=== PATIENT | male | born 1985 | race Caucasian/White ===

== ENCOUNTER 2018-07-04 15:31 | Emergency (ER) | payer MEDICAID, SELFPAY ==
[2018-07-04 15:36] VITALS: BP 138/72; PULSE 67; RESP 12; TEMP 37; O2SAT 98
--- NOTE | 2018-07-04 15:38 | W.ED.GENAD ---
Discharge Plan Disposition Patient Disposition: HOME Condition: Good Discharge Details Chief Complaint: DentalOral Clinical Impression: Dental infection Primary Care Provider: Addy Pham ED Provider: Ky Mercado Home Meds and New Rx's Prescriptions: New clindamycin HCl 150 mg capsule 450 mg PO TID 7 Days Qty: 63 RF: 0 ibuprofen 600 mg tablet 600 mg PO QID PRN (Reason: pain) Qty: 30 RF: 0 Discharge Instructions Additional Instructions: follow up with your dentist take 600mg ibuprofen and 1000mg tylenol every 6 hours for pain as needed if you have difficulty swallowing, high fevers, or difficulty breathing return to the emergency department Medical Decision Making Pt states last week she had his anterior upper left tooth pulled at dentist in [place], then had to go back yesterday for infection where they drained it .They were supposed to call him in a prescription but he states they didn't so he came here for a prescription. 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 No abscess I can palpate or see that I can drain. Will start on abx and he will f/u with his dentist, return precautions given Differential Diagnosis gum infection, abscess HPI General Mode of arrival: ambulatory. Date/Time Provider Initiated Documentation: 07/04/18 15:34. Limitations to Documentation: no limitations. Information obtained by: patient. History of Present Illness 32 year old M presents to the emergency department with the chief complaint of anterior upper gum pain, described as moderate, with intensity rated at 7. Quality is described as aching, and is localized to the mouth. Patient reports no radiation. Patient started experiencing this week(s) (1) and it has been constant. No relieving factors improve symptom(s), No exacerbating factors reported . Patient notes no other symptoms.. Patient did receive the following treatments prior to arrival, none Related Data Home Medications Medication Instructions Recorded Confirmed clindamycin HCl 450 mg PO TID 7 Days #63 cap 07/04/18 ibuprofen 600 mg PO QID PRN #30 tab 07/04/18 Previous Rx's Medication Instructions Recorded clindamycin HCl 450 mg PO TID 7 Days #63 cap 07/04/18 ibuprofen 600 mg PO QID PRN #30 tab 07/04/18 Allergies Allergy/AdvReac Type Severity Reaction Status Date / Time penicillin V [Penicillin V] Allergy Severe Anaphylaxsi Unverified 07/04/18 15:38 s General Stated Complaint: DentalOral [place]: 5 Review of Systems Review of Systems All systems reviewed & are unremarkable except as noted in HPI and below Constitutional Denies chills, Denies fever(s) and Denies weakness Eyes Denies loss of vision ENT Denies change in voice Cardiovascular Denies chest pain and Denies dyspnea Respiratory Denies dyspnea Gastrointestinal Denies abdominal pain, Denies nausea and Denies vomiting Genitourinary Denies dysuria Musculoskeletal Denies joint swelling Integumentary/Breasts Denies rash Neurologic Denies loss of vision and Denies weakness PFSH Social History Smoking/Tobacco Use Status: Never Exam Const General: no acute distress Orientation: alert HENMT Head: normal to inspection Ears: external ears normal General nose exam: external nose normal Mouth: moist mucous membranes Eyes General: appearance normal, both eyes and all related structures Neck Neck: normal visual inspection Resp Effort & Inspection: normal respiratory effort and able to speak in complete sentences Cardio Rate: regular rate Skin General skin exam: no rashes or lesions noted Neuro General: alert and oriented x3 Extrem General: normal to inspection Psych Mental Status: mental status grossly normal Course Vital Signs Temperature 37.0 C 07/04/18 15:36 Pulse 67 07/04/18 15:36 Respiratory Rate 12 07/04/18 15:36 Blood Pressure 138/72 07/04/18 15:36 Pulse Oximetry 98 07/04/18 15:36 Temperature 37.0 C 07/04/18 15:36 Temperature Source Temporal Artery Scan 07/04/18 15:36 Pulse 67 07/04/18 15:36 Respiratory Rate 12 07/04/18 15:36 Blood Pressure 138/72 07/04/18 15:36 Blood Pressure Position Sitting 07/04/18 15:36 Pulse Oximetry 98 07/04/18 15:36 Oxygen Delivery Method Room Air 07/04/18 15:36 Oxygen Flow Rate 0 07/04/18 15:36 Pain Level 7 07/04/18 15:36
--- NOTE | 2018-07-04 15:41 | ED.GENADUL_ITS ---
Discharge Plan Disposition Patient Disposition: HOME Condition: Good Discharge Details Chief Complaint: DentalOral Clinical Impression: Dental infection Primary Care Provider: Addy Pham ED Provider: Ky Mercado Home Meds and New Rx's Prescriptions: New clindamycin HCl 150 mg capsule 450 mg PO TID 7 Days Qty: 63 RF: 0 ibuprofen 600 mg tablet 600 mg PO QID PRN (Reason: pain) Qty: 30 RF: 0 Discharge Instructions Additional Instructions: follow up with your dentist take 600mg ibuprofen and 1000mg tylenol every 6 hours for pain as needed if you have difficulty swallowing, high fevers, or difficulty breathing return to the emergency department Medical Decision Making Pt states last week she had his anterior upper left tooth pulled at dentist in [place], then had to go back yesterday for infection where they drained it .They were supposed to call him in a prescription but he states they didn't so he came here for a prescription. 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 No abscess I can palpate or see that I can drain. Will start on abx and he will f/u with his dentist, return precautions given Differential Diagnosis gum infection, abscess HPI General Mode of arrival: ambulatory . Date/Time Provider Initiated Documentation: 07/04/18 15:34 . Limitations to Documentation: no limitations . Information obtained by: patient . History of Present Illness 32 year old M presents to the emergency department with the chief complaint of anterior upper gum pain, described as moderate, with intensity rated at 7. Quality is described as aching, and is localized to the mouth. Patient reports no radiation. Patient started experiencing this week(s) (1) and it has been constant. No relieving factors improve symptom(s), No exacerbating factors reported . Patient notes no other symptoms.. Patient did receive the following treatments prior to arrival, none Related Data Home Medications Medication Instructions Recorded Confirmed clindamycin HCl 450 mg PO TID 7 Days #63 cap 07/04/18 ibuprofen 600 mg PO QID PRN #30 tab 07/04/18 Previous Rx's Medication Instructions Recorded clindamycin HCl 450 mg PO TID 7 Days #63 cap 07/04/18 ibuprofen 600 mg PO QID PRN #30 tab 07/04/18 Allergies Allergy/AdvReac Type Severity Reaction Status Date / Time penicillin V [Penicillin V] Allergy Severe Anaphylaxsi Unverified 07/04/18 15:38 s General Stated Complaint: DentalOral [place]: 5 Review of Systems Review of Systems All systems reviewed & are unremarkable except as noted in HPI and below Constitutional Denies chills, Denies fever(s) and Denies weakness Eyes Denies loss of vision ENT Denies change in voice Cardiovascular Denies chest pain and Denies dyspnea Respiratory Denies dyspnea Gastrointestinal Denies abdominal pain, Denies nausea and Denies vomiting Genitourinary Denies dysuria Musculoskeletal Denies joint swelling Integumentary/Breasts Denies rash Neurologic Denies loss of vision and Denies weakness PFSH Social History Smoking/Tobacco Use Status: Never Exam Const General: no acute distress Orientation: alert HENMT Head: normal to inspection Ears: external ears normal General nose exam: external nose normal Mouth: moist mucous membranes Eyes General: appearance normal, both eyes and all related structures Neck Neck: normal visual inspection Resp Effort & Inspection: normal respiratory effort and able to speak in complete sentences Cardio Rate: regular rate Skin General skin exam: no rashes or lesions noted Neuro General: alert and oriented x3 Extrem General: normal to inspection Psych Mental Status: mental status grossly normal Course Vital Signs Temperature 37.0 C 07/04/18 15:36 Pulse 67 07/04/18 15:36 Respiratory Rate 12 07/04/18 15:36 Blood Pressure 138/72 07/04/18 15:36 Pulse Oximetry 98 07/04/18 15:36 Temperature 37.0 C 07/04/18 15:36 Temperature Source Temporal Artery Scan 07/04/18 15:36 Pulse 67 07/04/18 15:36 Respiratory Rate 12 07/04/18 15:36 Blood Pressure 138/72 07/04/18 15:36 Blood Pressure Position Sitting 07/04/18 15:36 Pulse Oximetry 98 07/04/18 15:36 Oxygen Delivery Method Room Air 07/04/18 15:36 Oxygen Flow Rate 0 07/04/18 15:36 Pain Level 7 07/04/18 15:36
== END 2018-07-04 15:52 | disposition home or self-care (01) ==
LOC: ER 15:54
PROVIDERS: Emergency Provider Emergency Medicine; PCP Internal Medicine
DX: K04.7 Periapical abscess without sinus (principal)
CPT/HCPCS: 99283

== ENCOUNTER 2019-02-10 17:31 | Emergency (ER) | payer MEDICAID, SELFPAY ==
[2019-02-10 17:38] VITALS: BP 143/80; PULSE 76; RESP 20; TEMP 36.7; O2SAT 97
--- NOTE | 2019-02-10 17:48 | W.ED.GENAD ---
Discharge Plan Disposition Patient Disposition: HOME Condition: Fair Discharge Details Chief Complaint: GenMedical Clinical Impression: URI (upper respiratory infection), Acute dehydration Primary Care Provider: Addy Pham ED Provider: Nathaly Ram Home Meds and New Rx's Prescriptions: Continued ibuprofen 600 mg tablet 600 mg PO QID PRN (Reason: pain) Qty: 30 RF: 0 Discharge Instructions Instructions: Dehydration (ED), Upper Respiratory Infection (ED) Additional Instructions: Encourage hydration. Tylenol and/or ibuprofen as needed for discomfort. Please follow-up with her primary care next week if symptoms persist. If you develop shortness of breath, difficulty breathing, fevers, inability stay hydrated or other new/worsening symptoms please seek care urgently once again. Stand Alone Forms: Work Release Referrals: Addy Pham MD [Primary Care Provider] - Medical Decision Making Patient is a 33-year-old male presenting today with chief complaint of URI. He reports that he started having symptoms yesterday and is endorsing left ear pain, sore throat, cough. Feels that he overheated yesterday as he was working outside in the heat. States that he has had difficulty staying hydrated given his line of work. States that yesterday he had some nausea but that is since subsided. No diarrhea, no change in urinary habits. States that he has hydrated aggressively today. Sounds to have been dehydrated yesterday. Vital signs are reassuring, patient appears nontoxic. No acute abnormalities noted on exam. Lungs are clear. Advised likely viral URI. Encourage hydration. Will give a note for work. Advised Tylenol and ibuprofen as needed for discomfort. Was given strict return precautions. Advise follow-up with primary care next week for reevaluation if symptoms have not completely improved. All his questions and concerns were addressed and he is in agreement's plan HPI General Mode of arrival: ambulatory. Date/Time Provider Initiated Documentation: 02/10/19 17:47. Limitations to Documentation: no limitations. Information obtained by: patient and RN notes reviewed. HPI Narrative: Is a 33-year-old male presenting today with concern for possible heat exposure yesterday, dehydration yesterday, URI symptoms. He reports overall he is feeling improved today but continues to feel fatigued. Is endorsing mild cough, left ear pain, sore throat. No fevers. Has felt that his skin is warm but associates this with the warm temperatures he was working yesterday. Related Data Home Medications Medication Instructions Recorded Confirmed ibuprofen 600 mg PO QID PRN #30 tab 07/04/18 02/10/19 Previous Rx's Medication Instructions Recorded ibuprofen 600 mg PO QID PRN #30 tab 07/04/18 Allergies Allergy/AdvReac Type Severity Reaction Status Date / Time penicillin V [Penicillin V] Allergy Severe Anaphylaxsi Unverified 02/10/19 17:39 s General Stated Complaint: GenMedical [place]: 4 Review of Systems Constitutional Reports as per HPI and Denies headache(s) Eyes Reports as per HPI, Denies eye discharge and Denies irritation ENT Reports as per HPI, Denies change in voice, Denies ear discharge, Reports otalgia, Denies headache(s), Reports nasal congestion, Reports nasal discharge, Denies sinus pain and Reports sore throat Cardiovascular Reports as per HPI, Denies chest pain and Denies dyspnea Respiratory Reports as per HPI, Denies chest congestion, Reports cough, Denies hemoptysis and Denies dyspnea Gastrointestinal Reports as per HPI, Denies abdominal pain, Denies change in bowel habits, Denies nausea and Denies vomiting Integumentary/Breasts Reports as per HPI and Denies rash Neurologic Reports as per HPI and Denies headache(s) [facility] Social History Smoking/Tobacco Use Status: Never Drug use: Never Do you feel safe at home: Yes Do you feel safe in your relationship?: Yes Exam Const General: cooperative, healthy appearing, comfortable, no acute distress, well developed and well groomed Nutritional Appearance: average body habitus and well nourished Orientation: alert and awake [facility] Head: normal to inspection, normocephalic and atraumatic Ears: hearing grossly normal bilaterally, external ears normal and TM's normal bilaterally General nose exam: external nose normal and nares normal Face and sinus: normal facial exam, sinuses nontender and face symmetric Mouth: oral mucosae normal, lip normal, tongue normal, oropharynx normal and moist mucous membranes Teeth and gingiva: dentition normal Throat: posterior oropharynx normal, tonsils normal and uvula midline Eyes General: appearance normal, both eyes and all related structures Neck Neck: normal visual inspection, full ROM, no lymphadenopathy and no meningeal signs Resp Effort & Inspection: normal respiratory effort, able to speak in complete sentences and no respiratory distress Auscultation: clear to auscultation bilaterally, no rales, no rhonchi and no wheezes Cardio Rate: regular rate Rhythm: regular rhythm Heart Sounds: S1 normal and S2 normal Skin General skin exam: no rashes or lesions noted Neuro General: alert and awake Cognition: normal cognition Speech: speech normal Gait: normal gait Psych Appearance: grossly normal and well kempt Mental Status: mental status grossly normal Speech and Movement: speech and movement normal Course Vital Signs Temperature 36.7 C 02/10/19 17:38 Pulse 76 02/10/19 17:38 Respiratory Rate 20 02/10/19 17:38 Blood Pressure 143/80 H 02/10/19 17:38 Pulse Oximetry 97 02/10/19 17:38 Temperature 36.7 C 02/10/19 17:38 Temperature Source Temporal Artery Scan 02/10/19 17:38 Pulse 76 02/10/19 17:38 Respiratory Rate 20 02/10/19 17:38 Respiratory Effort Non-Labored 02/10/19 17:38 Blood Pressure 143/80 H 02/10/19 17:38 Pulse Oximetry 97 02/10/19 17:38 Oxygen Delivery Method Room Air 02/10/19 17:38 Oxygen Flow Rate 0 02/10/19 17:38 Pain Level 0 02/10/19 17:38
--- NOTE | 2019-02-10 18:35 | ED.GENADUL_ITS ---
Discharge Plan Disposition Patient Disposition: HOME Condition: Fair Discharge Details Chief Complaint: GenMedical Clinical Impression: URI (upper respiratory infection), Acute dehydration Primary Care Provider: Addy Pham ED Provider: Nathaly Ram Home Meds and New Rx's Prescriptions: Continued ibuprofen 600 mg tablet 600 mg PO QID PRN (Reason: pain) Qty: 30 RF: 0 Discharge Instructions Instructions: Dehydration (ED), Upper Respiratory Infection (ED) Additional Instructions: Encourage hydration. Tylenol and/or ibuprofen as needed for discomfort. Please follow-up with her primary care next week if symptoms persist. If you develop shortness of breath, difficulty breathing, fevers, inability stay hydrated or other new/worsening symptoms please seek care urgently once again. Stand Alone Forms: Work Release Referrals: Addy Pham MD [Primary Care Provider] - Medical Decision Making Patient is a 33-year-old male presenting today with chief complaint of URI. He reports that he started having symptoms yesterday and is endorsing left ear pain, sore throat, cough. Feels that he overheated yesterday as he was working outside in the heat. States that he has had difficulty staying hydrated given his line of work. States that yesterday he had some nausea but that is since subsided. No diarrhea, no change in urinary habits. States that he has hydrated aggressively today. Sounds to have been dehydrated yesterday. Vital signs are reassuring, patient appears nontoxic. No acute abnormalities noted on exam. Lungs are clear. Advised likely viral URI. Encourage hydration. Will give a note for work. Advised Tylenol and ibuprofen as needed for discomfort. Was given strict return precautions. Advise follow-up with primary care next week for reevaluation if symptoms have not completely improved. All his questions and concerns were addressed and he is in agreement's plan HPI General Mode of arrival: ambulatory . Date/Time Provider Initiated Documentation: 02/10/19 17:47 . Limitations to Documentation: no limitations . Information obtained by: patient and RN notes reviewed . HPI Narrative: Is a 33-year-old male presenting today with concern for possible heat exposure yesterday, dehydration yesterday, URI symptoms. He reports overall he is feeling improved today but continues to feel fatigued. Is endorsing mild cough, left ear pain, sore throat. No fevers. Has felt that his skin is warm but associates this with the warm temperatures he was working yesterday. Related Data Home Medications Medication Instructions Recorded Confirmed ibuprofen 600 mg PO QID PRN #30 tab 07/04/18 02/10/19 Previous Rx's Medication Instructions Recorded ibuprofen 600 mg PO QID PRN #30 tab 07/04/18 Allergies Allergy/AdvReac Type Severity Reaction Status Date / Time penicillin V [Penicillin V] Allergy Severe Anaphylaxsi Unverified 02/10/19 17:39 s General Stated Complaint: GenMedical [place]: 4 Review of Systems Constitutional Reports as per HPI and Denies headache(s) Eyes Reports as per HPI, Denies eye discharge and Denies irritation ENT Reports as per HPI, Denies change in voice, Denies ear discharge, Reports ot algia, Denies headache(s), Reports nasal congestion, Reports nasal discharge, Denies sinus pain and Reports sore throat Cardiovascular Reports as per HPI, Denies chest pain and Denies dyspnea Respiratory Reports as per HPI, Denies chest congestion, Reports cough, Denies hemoptysis and Denies dyspnea Gastrointestinal Reports as per HPI, Denies abdominal pain, Denies change in bowel habits, Denies nausea and Denies vomiting Integumentary/Breasts Reports as per HPI and Denies rash Neurologic Reports as per HPI and Denies headache(s) [facility] Social History Smoking/Tobacco Use Status: Never Drug use: Never Do you feel safe at home: Yes Do you feel safe in your relationship?: Yes Exam Const General: cooperative, healthy appearing, comfortable, no acute distress, well developed and well groomed Nutritional Appearance: average body habitus and well nourished Orientation: alert and awake [facility] Head: normal to inspection, normocephalic and atraumatic Ears: hearing grossly normal bilaterally, external ears normal and TM's normal bilaterally General nose exam: external nose normal and nares normal Face and sinus: normal facial exam, sinuses nontender and face symmetric Mouth: oral mucosae normal, lip normal, tongue normal, oropharynx normal and moist mucous membranes Teeth and gingiva: dentition normal Throat: posterior oropharynx normal, tonsils normal and uvula midline Eyes General: appearance normal, both eyes and all related structures Neck Neck: normal visual inspection, full ROM, no lymphadenopathy and no meningeal signs Resp Effort & Inspection: normal respiratory effort, able to speak in complete senten tommy and no respiratory distress Auscultation: clear to auscultation bilaterally, no rales, no rhonchi and no wheezes Cardio Rate: regular rate Rhythm: regular rhythm Heart Sounds: S1 normal and S2 normal Skin General skin exam: no rashes or lesions noted Neuro General: alert and awake Cognition: normal cognition Speech: speech normal Gait: normal gait Psych Appearance: grossly normal and well kempt Mental Status: mental status grossly normal Speech and Movement: speech and movement normal Course Vital Signs Temperature 36.7 C 02/10/19 17:38 Pulse 76 02/10/19 17:38 Respiratory Rate 20 02/10/19 17:38 Blood Pressure 143/80 H 02/10/19 17:38 Pulse Oximetry 97 02/10/19 17:38 Temperature 36.7 C 02/10/19 17:38 Temperature Source Temporal Artery Scan 02/10/19 17:38 Pulse 76 02/10/19 17:38 Respiratory Rate 20 02/10/19 17:38 Respiratory Effort Non-Labored 02/10/19 17:38 Blood Pressure 143/80 H 02/10/19 17:38 Pulse Oximetry 97 02/10/19 17:38 Oxygen Delivery Method Room Air 02/10/19 17:38 Oxygen Flow Rate 0 02/10/19 17:38 Pain Level 0 02/10/19 17:38
[2019-02-10 18:51] VITALS: BP 143/80; PULSE 76; RESP 20; TEMP 36.7; O2SAT 97
== END 2019-02-10 18:52 | disposition home or self-care (01) ==
PROVIDERS: Emergency Provider Physician Assistant; PCP Internal Medicine
DX: J06.9 Acute upper respiratory infection, unspecified (principal); E86.0 Dehydration
CPT/HCPCS: 99282

== ENCOUNTER 2019-07-16 16:24 | Emergency (ER) | payer MEDICAID, SELFPAY ==
[2019-07-16 16:32] VITALS: BP 143/78; PULSE 80; RESP 16; TEMP 36.7; O2SAT 97
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
== END 2019-07-16 16:45 | disposition home or self-care (01) ==
PROVIDERS: Emergency Provider Emergency Medicine; PCP Internal Medicine
DX: S16.1XXA Strain of muscle, fascia and tendon at neck level, initial encounter (principal); V43.02XA Car driver injured in collision with other type car in nontraffic accident, initial encounter
CPT/HCPCS: 99283

== ENCOUNTER 2019-10-22 04:13 | Outpatient (CLI) | payer MEDICAID, SELFPAY ==
--- NOTE | 2019-10-22 | DI.MRI_ITS ---
EXAM: MR CERVICAL SPINE WO CLINICAL HISTORY: RT SHOULDER PAIN M25.511, THORACIC BACK APINM54.9, NECK PAIN M54.2. TECHNIQUE: Multiplanar multisequence MRI was performed. COMPARISON: CHEST 2 VIEWS PA,LAT from 05/02/2017 FINDINGS: The cord signal and marrow signal appear normal. There is mild disc bulging at C4-5 with slight effa cement of the anterior CSF space. There are small endplate osteophytes which may mildly encroach on the left neural foramen. The remaining discs have a normal appearance. IMPRESSION: Mild disc bulging and small endplate osteophytes at C4-5 which makes mildly narrow the left neural f oramen. DATA REPOSITORY:
--- NOTE | 2019-10-22 | DI.MRI_ITS ---
EXAM: MR THORACIC SPINE WO CLINICAL HISTORY: RT SHOULDER PAIN M25.511, THORACIC BACK PAIN M54.9, NECK PAIN M54.2. TECHNIQUE: Multiplanar multisequence MRI was performed. COMPARISON: CHEST 2 VIEWS PA,LAT from 05/02/2017 FINDINGS: There is a tiny central disc protrusion at T8-9. The remaining discs are intact. There is no narrow ing of the central canal or neural foramen. There are no significant degenerative changes. The cord signal and marrow signal appear normal. IMPRESSION: Tiny central disc protrusion at T8-9, of uncertain clinical significance. DATA REPOSITORY:
== END 2019-10-22 04:33 ==
PROVIDERS: PCP Internal Medicine; Visit Provider Nurse Practitioner Family
DX: M54.6 Pain in thoracic spine (principal); M25.511 Pain in right shoulder; M54.2 Cervicalgia; M51.34 Other intervertebral disc degeneration, thoracic region; M50.321 Other cervical disc degeneration at C4-C5 level
CPT/HCPCS: 72141; 72146

== ENCOUNTER 2020-02-14 14:24 | Emergency (ER) | payer MEDICAID, SELFPAY ==
[2020-02-14 14:29] VITALS: BP 135/81; PULSE 72; RESP 15; TEMP 36.4; O2SAT 97
--- NOTE | 2020-02-14 15:07 | ED.GENADUL_ITS ---
Discharge Plan Disposition Patient Disposition: HOME Condition: Stable Discharge Details Chief Complaint: GenMedical Clinical Impression: Heat effect, Dehydration, mild Primary Care Provider: Addy Pham ED Provider: Mkea Chan Home Meds and New Rx's Prescriptions: Continued acetaminophen 500 mg Tablet 500 mg PO Q6H PRNRF: 0 baclofen 10 mg tablet 10 mg PO TID 30 Days Qty: 90 RF: 2 ibuprofen 600 mg tablet 600 mg PO QID PRN (Reason: pain) Qty: 30 RF: 0 Discharge Instructions Instructions: Dehydration (ED) Additional Instructions: Drink plenty of fluids. Rest activities as tolerated. When working to be sure to take breaks as frequently as possible and drink plenty of fluid at work. Observe for any return of symptoms. Return if needed for any worsening, concerns or alarming symptoms Stand Alone Forms: Work Release Medical Decision Making Pleasant 34-year-old gentleman who was working outside yesterday in the heat and felt he became dehydrated. Patient reports he began to feel ill, described a headache and dizziness. He went to his home which was air-conditioned began drinking water. Patient has been tolerating water without difficulty. Reports he is feeling entirely normal at this time. Patient tried to return to work but his employer would not allow him to return without a work note stating he was cleared for work. Patient again reports he feels entirely asymptomatic at this time. Denies any headache or dizziness. Denies any chest pain, difficulty breathing shortness of breath or wheezing. Patient reports he has been urinating normal amounts and has no difficulty eating or drinking today. Patient feels fit to work. Patient's vital signs reviewed and are normal. Patient denies any other concerns at this time. Patient feels he needs no evaluation further at this time only a note to return. Patient appears well. I feel this is reasonable and will provide patient the work note he requests. I recommended he return if he has any concerns or worsening. The patient was stable and requested discharge. Prior to discharge, my usual and customary return precautions were reviewed with the patient - this included follow-up instructions and reasons to return to the Emergency Department if conditions worsens, does not improve as expected, or other new concerns arise. HPI General Date/Time Provider Initiated Documentation: 02/14/20 14:57 . HPI Narrative: This is a 34-year-old patient presenting the emergency room requesting a return to work note. 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 Patient reports he went home home yesterday. He was working outside and will not drinking enough fluids. Patient felt as if he was getting quite dehydrated, described a mild headache and dizziness. Patient reports he went into his home in the air conditioner drink water and did feel significantly improved. Patient reports his work was unwilling to allow him to return to work today without being evaluated and getting a return to work note. Patient reports he feels normal at this time. Denies any headache, dizziness, weakness, fatigue, chest pain, difficulty breathing shortness of breath, wheezing. Denies any nausea vomiting or diarrhea. Patient has been drinking water since yesterday without difficulty. Urinating normal amounts. No longer feels dehydrated. Patient feels very strongly that his symptoms were likely as he was working in the heat and felt dehydrated. Patient does not feel he needs any further evaluation or management rather he is requesting a return to work note so that he can begin working tomorrow. Patient denies any drug or alcohol use. No other concerns or complaints at this time. Related Data Home Medications Medication Instructions Recorded Confirmed ibuprofen 600 mg PO QID PRN #30 tab 07/04/18 02/14/20 acetaminophen 500 mg PO Q6H PRN 11/04/19 02/14/20 baclofen 10 mg tablet 10 mg PO TID 30 Days #90 tab 12/27/19 02/14/20 Previous Rx's Medication Instructions Recorded ibuprofen 600 mg PO QID PRN #30 tab 07/04/18 baclofen 10 mg tablet 10 mg PO TID 30 Days #90 tab 12/27/19 Allergies Allergy/AdvReac Type Severity Reaction Status Date / Time penicillin V [Penicillin V] Allergy Severe Anaphylaxsi Unverified 02/14/20 14:34 s General Stated Complaint: GenMedical [place]: 5 Review of Systems All systems reviewed & are unremarkable except as noted in HPI and below PFSH Medical History Back pain, chronic (Acute) Dental caries (Acute) Dyspepsia (Acute) History of migraine (Acute) Neck pain (Acute) Obesity (BMI 30.0-34.9) (Acute) Palpitations (Acute) Pulsatile tinnitus (Acute) Shoulder pain, right (Acute) Thoracic back pain (Acute) Social History Smoking/Tobacco Use Status: Never Alcohol Intake: current Alcohol Intake frequency: holidays/special occasions only Drug use: Never Substance use type: does not use Household members: none Seatbelt use: always Do you feel safe at home: Yes Do you feel safe in your relationship?: Yes Exam Narrative Exam Narrative: CONST: Healthy appearing patient, in no acute distress. Well hydrated. Alert and oriented. HENMT: Head nomocephalic, normal to inspection. Atraumatic. Hearing grossly normal. EYES: General normal appearance. Alignment normal. Eyelids normal. Conjunctiva normal. Sclera normal. NECK: Normal visual inspection. FROM. No lymphadenopathy. Trachea midline. No Midline tenderness. CHEST: Normal insepection of the chest. RESP: Normal respiratory effort. Speaking full sentences. No cough. No wheezing. No retractions. Clear to auscaltation. Breath sound equal and present bilaterally. CARDIO: No JVD. Normal PMI. Regular Rate. Regular Rhythm. Normal peripheral pulses. GI: Normal inspection of abdomen. No distension. Soft. Nontender. Bowel sounds present in all 4 quadrants. No rebound. No gaurding. MUSCULOSKELETAL: Normal Gait. FROM of all extremities. SKIN: Normal. Dry. No rashes. NEURO: Alert and awake. Speech clear. PSYCH: Normal affect. Cooperative. Course Vital Signs Vital signs: Vital Signs Temperature 36.4 C L 02/14/20 14:29 Pulse 72 02/14/20 14:29 Respiratory Rate 15 02/14/20 14:29 Blood Pressure 135/81 02/14/20 14:29 Pulse Oximetry 97 02/14/20 14:29 Temperature 36.4 C L 02/14/20 14:29 Temperature Source Temporal Artery Scan 02/14/20 14:29 Pulse 72 02/14/20 14:29 Respiratory Rate 15 02/14/20 14:29 Respiratory Effort Non-Labored 02/14/20 14:33 Blood Pressure 135/81 02/14/20 14:29 Pulse Oximetry 97 02/14/20 14:29 Oxygen Delivery Method Room Air 02/14/20 14:29 Oxygen Flow Rate 0 02/14/20 14:29 Pain Level 0 02/14/20 14:29
== END 2020-02-14 15:20 | disposition home or self-care (01) ==
PROVIDERS: Emergency Provider Physician Assistant; PCP Internal Medicine
DX: R86.0 Abnormal level of enzymes in specimens from male genital organs (principal); X30.XXXA Exposure to excessive natural heat, initial encounter; Z02.79 Encounter for issue of other medical certificate
CPT/HCPCS: 99281; 99282

== ENCOUNTER 2020-02-24 00:18 | Outpatient (CLI) | payer MEDICAID, SELFPAY ==
--- NOTE | 2020-02-24 | DI.US_ITS ---
EXAM: MYOFASCIAL PAIN SYNDROME OF THORACIC SPINE COMPARISON: No exams were available for comparison TECHNIQUE: Ultrasound performed using standard protocol. FINDINGS: Sonography was provided for Dr. Foster during the performance of a myofascial trigger point injection. Please refer to the procedure report for complete details. DATA REPOSITORY:
[2020-02-24 12:36] VITALS: BP 122/74; PULSE 71; RESP 16; TEMP 36.6; O2SAT 97
[2020-02-24 13:53] VITALS: PULSE 76; O2SAT 98
--- NOTE | 2020-02-24 13:58 | PDOC.PAIN_ITS ---
Pain Clinic Procedure Note Procedure Note Procedure Note: ULTRASOUND GUIDED RIGHT Rhomboid muscle Trigger point INJECTION Pre-Procedural Evaluation: KARYN VASQUEZ has been referred to the [facility] for an Ultrasound Guided right rhomboid muscle trigger point injection for a chief complaint of right sided mid-back pain. Pre-procedure Pain Score: 6/10 DX: Muscle pain Patient was interviewed and the medical record reviewed. There were no medical, pharmacologic, radiographic, or other structural contraindications to preforming an ultrasound guided injection. Risks and expected side effects as well as potential benefits of the procedure were reviewed. The patient consent form was signed and witnessed. Standard time-out procedure was performed. The use of direct ultrasound visualization of the needle (rather than a non- guided injection) was required to increase patient safety by excluding inadvertent intramuscular, intratendinous, or intraneural needle placement and minimizing bleeding by avoiding osteochondral or vascular injury from the needle. Additionally, the increased accuracy of placement may increase clinical effectiveness and will allow higher diagnostic specificity when evaluating effectiveness of this injection. Procedure Description: The patient was placed in the prone position and automated blood pressure cuff and pulse oximeter applied for monitoring during the procedure and recorded in the medical record. Pre-injection ultrasound scanning of the area of interest was performed using a linear transducer, identifying relevant anatomy, landmarks, and neurovascular structures allowing for optimal needle path. The site was then prepared in the usual sterile fashion, using thorough Chlorhexadine preparation of the skin and sterile draping. The same ultrasound transducer was then passed into the sterile field using sterile probe cover and sterile ultrasound gel. The injection target was again visualized. Skin and subcutaneous tissues were anesthetized with 3 mL of 1% Lidocaine. A 21 guage P[place]unk US needle needle was placed under live ultrasound guidance, using an in-plane approach, to the target area. After visualization of the needle tip at the target area, 3 cc of 1% Lidocaine was delivered after negative aspiration for blood. Ultrasound images were captured and stored for documentation purposes. Post-procedure Pain Score:1/10 Vital signs were stable throughout the procedure and were as recorded in the docflowsheet by the nursing staff. Follow up plans and appointments were discussed with the patient.Post procedure instruction was given as documented in nursing documentation and having met discharge criteria, they were discharged from the [facility]. COMMENTS: He was instructed on home stretching.
== END 2020-02-24 00:38 ==
PROVIDERS: PCP Internal Medicine; Visit Provider Preventive Medicine Occupational Medicine
DX: M79.18 Myalgia, other site (principal)
CPT/HCPCS: 20552; 76942

== ENCOUNTER 2020-10-13 18:50 | Outpatient (REF) | payer MEDICAID, SELFPAY ==
[2020-10-16 16:32] LABS: COVID-19 RT-PCR UVMMC Result Negative (Negative)
== END 2020-10-13 18:51 | disposition home or self-care (01) ==
LOC: NCHCN 18:50
PROVIDERS: PCP Internal Medicine; Visit Provider Nurse Practitioner Family
DX: Z20.822 Contact with and (suspected) exposure to COVID-19 (principal)
CPT/HCPCS: U0003

== ENCOUNTER 2021-08-25 09:48 | Emergency (ER) | payer MEDICAID, SELFPAY ==
--- NOTE | 2021-08-25 09:45 | RT.EKG_ITS ---
APPROVED REPORT Exam: Resting ECG Reason for Exam: SOB Patient Location: E HR:86 bpm ECG Measurements Heart Rate 86 AXIS AL 156 P 80 QRSd 84 QRS 30 QT 351 T 28 QTc 421 Conclusion Sinus rhythm...normal P axis, V-rate 60- 99. Sinus. No STEMI. I have reviewed and interpreted ECG and agree with software generated interpretation.
[2021-08-25 10:00] VITALS: BP 120/73; PULSE 88; RESP 18; TEMP 36.5; O2SAT 98
--- NOTE | 2021-08-25 10:22 | ED.GENADUL_ITS ---
Discharge Plan Disposition Patient Disposition: HOME Condition: Stable Discharge Details Clinical Impression: Encounter for laboratory testing for COVID-19 virus Primary Care Provider: Addy Pham ED Provider: Winsome Wagoner Home Meds and New Rx's Prescriptions: No Action acetaminophen 500 mg Tablet 500 mg PO Q6H PRNRF: 0 baclofen 10 mg tablet 10 mg PO TID 30 Days Qty: 90 RF: 2 ibuprofen 600 mg tablet 600 mg PO QID PRN (Reason: pain) Qty: 30 RF: 0 Discharge Instructions Instructions: COVID-19: Slow the Coronavirus Spread (ED) Additional Instructions: At this time the Covid swab is pending. Continue to quarantine until negative test. Take a multivitamin which includes vitamin D3, vitamin C and zinc. Follow up with primary care provider in 1 to 2 weeks. Return to ED sooner if any worsening or concerns. Increase oral fluids. Please take Tylenol or Ibuprofen with food every 4-6 hours as needed for pain and swelling. Stand Alone Forms: PENDING COVID-19 TESTING Referrals: Addy Pham MD [Primary Care Provider] - 2 weeks Medical Decision Making 36-year-old male presents to the ER with chief complaint of possible Covid exposure requesting testing. He reports that she was exposed on Friday. Began with cough shortness of breath on Friday and sinus congestion reports fever 2 days ago. He is a non-smoker. He has no increased work of breathing vital signs are stable upon initial exam he is speaking in full sentences. Lungs are clear to auscultation bilaterally. Covid swab ordered plan is to discharge patient on quarantine. Patient is also here with his 9-year-old son and is requesting a Covid swab as well. Send out Covid ordered HPI General Mode of arrival: ambulatory . Date/Time Provider Initiated Documentation: 08/25/21 09:49 . Limitations to Documentation: no limitations . Information obtained by: patient and RN notes reviewed . HPI Narrative: 36-year-old male presents to the ER with chief complaint of possible Covid exposure requesting testing. He reports that she was exposed on Friday. Began with cough shortness of breath on Friday and sinus congestion reports fever 2 days ago. He is a non-smoker. He has no increased work of breathing vital s igns are stable upon initial exam he is speaking in full sentences. Lungs are clear to auscultation bilaterally. Related Data Home Medications Medication Instructions Recorded Confirmed ibuprofen 600 mg PO QID PRN #30 tab 07/04/18 08/25/21 acetaminophen 500 mg PO Q6H PRN 11/04/19 02/24/20 baclofen 10 mg tablet 10 mg PO TID 30 Days #90 tab 12/27/19 08/25/21 Previous Rx's Medication Instructions Recorded ibuprofen 600 mg PO QID PRN #30 tab 07/04/18 baclofen 10 mg tablet 10 mg PO TID 30 Days #90 tab 12/27/19 Allergies Allergy/AdvReac Type Severity Reaction Status Date / Time penicillin V [Penicillin V] Allergy Severe Anaphylaxsi Unverified 08/25/21 10:03 s General Stated Complaint: RespSymp [place]: 3 Review of Systems All systems reviewed & are unremarkable except as noted in HPI and below PFSH All Active Problems (Updated 08/25/21 @ 10:36 by Winsome Wagoner) Encounter for laboratory testing for COVID-19 virus (Acute) Scabies exposure (Acute) Medical History (Updated 08/25/21 @ 10:36 by Winsome Wagoner) Back pain, chronic Dental caries Dyspepsia History of migraine Neck pain Obesity (BMI 30.0-34.9) Palpitations Pulsatile tinnitus Shoulder pain, right Thoracic back pain Social History Smoking/Tobacco Use Status: Never Smoking risk assessment performed?: Yes Alcohol Intake: current Alcohol Intake frequency: holidays/special occasions only Drug use: Never Substance use type: does not use Household members: none Seatbelt use: always Do you feel safe at home: Yes Do you feel safe in your relationship?: Yes Exam Narrative Exam Narrative: Constitutional: Alert and oriented x3. Appears stated age. Normal body habitus. Head: Normocephalic, no trauma. Eyes: Pupils PERRL, Red reflex noted, EOM's intact. Eyelids symmetrical without lesions, discharge, or swelling. ENT: Bilateral TM's WNL, External ear normal to inspection, no mastoid TTP, swelling, or erythema, Nasal turbinates WNL, no nasal discharge. Normal dentition, Posterior pharynx WNL, no exudate. Chest: RRR, Normal S1, S2, distal pulses intact. Resp: Lungs clear to auscultation bilaterally, no wheezes, rales, or rhonchi. Abdomen: Soft, non-distended, Normoactive bowel sounds all 4 quads. Musculoskeletal: Normal gait, 5/5 strength to all four extremities. Skin: No suspicious rashes or lesions. Capillary refill less than 2 sec. Neurologic: Cranial nerves II-XII intact. Alert and oriented x 3. Motor: No deficits noted. Sensory: Intact bilaterally all 4 extremities. Reflexes: DTR's intact bilaterally.. Hematologic/Lymphatic: No ecchymosis, no lymphadenopathy. Course Vital Signs Vital signs: Vital Signs Temperature 36.5 C 08/25/21 10:00 Pulse 88 08/25/21 10:00 Respiratory Rate 18 08/25/21 10:00 Blood Pressure 120/73 08/25/21 10:00 Pulse Oximetry 98 08/25/21 10:00 Temperature 36.5 C 08/25/21 10:00 Temperature Source Temporal Artery Scan 08/25/21 10:00 Pulse 88 08/25/21 10:00 Respiratory Rate 18 08/25/21 10:00 Blood Pressure 120/73 08/25/21 10:00 Blood Pressure Position Sitting 08/25/21 10:00 Pulse Oximetry 98 08/25/21 10:00 Oxygen Delivery Method OxyMask 08/25/21 10:00 Oxygen Flow Rate 0 08/25/21 10:00
[2021-08-27 11:56] LABS: COVID-19 RT-PCR UVMMC Result Positive (Negative)
--- NOTE | 2021-08-27 13:37 | ED.FU.B_ITS ---
Follow Up Plan: I was notified by the lab of positive Covid test result. I contacted the patient and relayed positive Covid test result to him. Patient reports that he feels somewhat improved from his visit to the emergency department. Patient meets criteria for oral antiviral medication or antibody infusion. I discussed options with patient, who stated that he is unable to drive to pharmacy to use that are currently stocking oral antiviral (closest pharmacies are in [facility]). He does state that he is able to drive to [facility] and would like to receive antibody infusion. I discussed plan for this with Anne-Marie of care management, who is working with infusion clinic to set up appointment with patient. Patient has been contacted regarding scheduling this by care management.
--- NOTE | 2021-08-27 13:50 | NUR.NOTE ---
Nursing Note: Accessed patient chart to determine how to place ambulatory orders after patient has been seen days later. Adelia Villavicencio
== END 2021-08-25 10:50 | disposition home or self-care (01) ==
PROVIDERS: Emergency Provider Registered Nurse Emergency; PCP Internal Medicine
DX: U07.1 COVID-19 (principal); R06.02 Shortness of breath
CPT/HCPCS: 36415; 93005; 99283; U0003; 93010

== ENCOUNTER 2021-09-14 01:09 | Outpatient (CLI) | payer MEDICAID, SELFPAY ==
--- NOTE | 2021-09-14 | DI.MRI_ITS ---
Exam(s) MR PELVIS WO EXAM: MR PELVIS WO CLINICAL HISTORY: COCCYX PAIN, M53.3 TECHNIQUE: Multiplanar multisequence MRI of Pelvis was performed COMPARISON: MR MR THORACIC SPINE WO from 10/22/2019 MR MR CERVICAL SPINE WO from 10/22/2019 FINDINGS: Bones: There is no fracture or contusion pattern. No significant joint effusion is present. No bone marrow edema is seen. The SI joints and symphysis pubis are well maintained. There is a small amount of fluid around the tip of the coccyx with no evidence of a drainable collect ion. There is no evidence of a mass. Intrapelvic structures demonstrate no significant abnormality. Disc desiccation and disc bulging at L4-5. L3-4 and L5-S1 discs appear normal. IMPRESSION: Small amount of fluid around the tip of the coccyx. No mass or bony destruction. DATA REPOSITORY:
== END 2021-09-14 01:29 ==
PROVIDERS: PCP Internal Medicine; Visit Provider Nurse Practitioner Family
DX: M53.3 Sacrococcygeal disorders, not elsewhere classified (principal)
CPT/HCPCS: 72195

== ENCOUNTER 2022-12-14 14:24 | Outpatient (REF) | payer MEDICAID, SELFPAY ==
[2022-12-16 11:18] LABS: Lyme Ab w Rflx to Lyme Confirm Negative (Negative)
[2022-12-17 19:11] LABS: Anaplasma phagocytophilum Negative (Negative); B. miyamotoi PCR Negative (Negative); Babesia divergens/MO-1 Negative (Negative); Babesia duncani Negative (Negative); Babesia microti Negative (Negative); Ehrlichia chaffeensis Negative (Negative); Ehrlichia ewingii/canis Negative (Negative); Ehrlichia muris eauclairensis Negative (Negative)
== END 2022-12-14 14:25 | disposition home or self-care (01) ==
LOC: NCHCN 14:24
PROVIDERS: PCP Internal Medicine; Visit Provider Physician Assistant Medical
DX: M54.89 Other dorsalgia (principal); Z11.8 Encounter for screening for other infectious and parasitic diseases
CPT/HCPCS: 87798; 86618

== ENCOUNTER 2022-12-21 15:05 | Outpatient (CLI) | payer MEDICAID, SELFPAY ==
--- NOTE | 2022-12-21 | DI.RAD_ITS ---
Exam(s) XR LUMBAR SPINE COMPLETE EXAM: XR LUMBAR SPINE COMPLETE CLINICAL HISTORY: BACK PAIN. TECHNIQUE: 2D digital imaging was performed of the lumbar spine. Six images were obtained. AP, lat eral, right oblique, left oblique and L5-S1 spot views were obtained. COMPARISON: No exams were available for comparison FINDINGS: BONES: No fracture or destructive lesion. Small endplate osteophytes are seen at L4-L5. No facet hype rtrophy identified. DISKS: There is mild disc space narrowing at L4-L5. ALIGNMENT: Lumbar spinal alignment is within normal limits. There is L4 spondylolysis but no spondylo listhesis. SOFT TISSUE: Normal. IMPRESSION: Mild degenerative changes at L4-L5. L4 spondylolysis but no spondylolisthesis. DATA REPOSITORY: RADIATION DOSE DELIVERED:
--- NOTE | 2022-12-21 15:51 | DI.VRAD_ITS ---
PROCEDURE INFORMATION: Exam: XR Lumbosacral Spine Exam date and time: 12/21/2022 3:16 PM Age: 37 years old Clinical indication: Low back pain TECHNIQUE: Imaging protocol: Radiologic exam of the lumbosacral spine. Views: 4 or 5 views. COMPARISON: MR PELVIS WO 09/14/2021 12:59 PM FINDINGS: Bones/joints: There appears to be bilateral spondylolysis L4-L5. There is no significant spondylolisthesis. There is minimal disc space narrowing at the L4-L5 level. Soft tissues: Unremarkable. IMPRESSION: Bilateral spondylolysis L4-L5 with mild associated spondylosis. Dictated and Authenticated by: Zita Tamayo MD. Ordering:MATI Camacho MD
== END 2022-12-21 15:25 ==
LOC: DI 15:05
PROVIDERS: PCP Internal Medicine; Visit Provider Physician Assistant Medical
DX: M54.50 Low back pain, unspecified (principal)
CPT/HCPCS: 72110

== ENCOUNTER 2023-02-19 02:04 | Outpatient (CLI) | payer MEDICAID, SELFPAY ==
--- NOTE | 2023-02-19 | DI.MRI_ITS ---
Exam(s) MR LUMBAR SPINE WO EXAM: MR LUMBAR SPINE WO CLINICAL HISTORY: BACK PAIN WITH RADICULOPATHY,M54.16,PARESTHESIASA, R20.2. TECHNIQUE: Multiplanar multisequence MRI of the Lumbar spine was performed. COMPARISON: CR,XR XR LUMBAR SPINE COMPLETE from 12/21/2022 FINDINGS: Bones: The last intervertebral disc space is designated the L5/S1 level for the numbering purpose of this examination. The vertebral body heights are well maintained. There is L4 spondylolysis, but no evidence of spondylolisthesis. The signal characteristics are unremarkable. Cord: The conus tip ends at the L1 level. It is of normal size and signal intensity. T12-L1: No disc herniations or bulges are present. No central spinal canal or neural foraminal stenos is. L1-2: No disc herniations or bulges are present. No central spinal canal or neural foraminal stenosis . L2-3: No disc herniations or bulges are present. No central spinal canal or neural foraminal stenosis . L3-4: No disc herniations or bulges are present. No central spinal canal or neural foraminal stenosis . L4-5: There is disc desiccation. There is a mild diffuse disc bulge. There is no central spinal can al stenosis. There are degenerative changes of the facets at this level. There is mild narrowing of the right and left neural foramen. L5-S1: No disc herniations or bulges are present. No central spinal canal or neural foraminal stenosi s. Soft tissues: The visualized SI joints and sacrum are well maintained. The paraspinal soft tissues ar e unremarkable. Visualized abdominal organs: Unremarkable. IMPRESSION: There is disc desiccation and a diffuse disc bulge at L4-L5. There are degenerative changes of the f acets at this level. The findings cause mild narrowing of the neural foramen bilaterally. DATA REPOSITORY:
== END 2023-02-19 02:24 ==
LOC: DI 02:05
PROVIDERS: PCP Internal Medicine; Visit Provider Nurse Practitioner Family
DX: R20.2 Paresthesia of skin; M47.26 Other spondylosis with radiculopathy, lumbar region; M54.50 Low back pain, unspecified
CPT/HCPCS: 72148

== ENCOUNTER 2023-03-27 21:18 | Outpatient (REF) | payer MEDICAID, SELFPAY ==
[2023-03-29 20:21] LABS: Chlamydia Result Negative (Negative); GC Result Negative (Negative)
[2023-03-31 08:45] LABS: Hepatitis B Surface Ag Negative (Negative)
[2023-03-31 09:17] LABS: HIV-1/2 Ag & Ab Screen Negative (Negative)
[2023-03-31 09:28] LABS: Hepatitis C Ab w Rflx HCV PCR Negative (Negative)
[2023-03-31 11:42] LABS: Syphilis Serology (RPR) Negative (Negative)
== END 2023-03-27 21:19 | disposition home or self-care (01) ==
LOC: LBN 21:18
PROVIDERS: PCP Internal Medicine; Visit Provider Physician Assistant Medical
DX: Z11.59 Encounter for screening for other viral diseases (principal); Z11.4 Encounter for screening for human immunodeficiency virus [HIV]; Z11.3 Encounter for screening for infections with a predominantly sexual mode of transmission; Z01.84 Encounter for antibody response examination
CPT/HCPCS: 86803; 87340; 87389; 87491; 87591; 86592

== ENCOUNTER 2023-04-08 15:06 | Outpatient (REF) | payer MEDICAID, SELFPAY ==
[2023-04-08 21:15] LABS: Anion Gap 10.3 mmol/L (3-11); BUN 11 mg/dL (7-18); CO2 26.7 mmol/L (21.0-32.0); CREATININE 0.9 mg/dL (0.70-1.30); Calcium 9.6 mg/dL (8.5-10.1); Chloride 108 mmol/L (98-107); Estimated GFR 112.11 (mL/min/1.73m2); Glucose 94 mg/dL (74-106); Potassium 4.3 mmol/L (3.5-5.1); Sodium 145 mmol/L (136-145)
== END 2023-04-08 15:07 | disposition home or self-care (01) ==
LOC: NCHCN 15:06
PROVIDERS: PCP Internal Medicine; Visit Provider Nurse Practitioner Family
DX: R20.2 Paresthesia of skin (principal); Z51.81 Encounter for therapeutic drug level monitoring; M54.16 Radiculopathy, lumbar region
CPT/HCPCS: 80048

== ENCOUNTER 2024-01-14 18:15 | Emergency (ER) | payer MEDICAID, SELFPAY ==
[2024-01-14 18:17] VITALS: BP 135/83; PULSE 79; RESP 16; TEMP 36.6; O2SAT 98
--- NOTE | 2024-01-14 19:08 | ED.GENADUL_ITS ---
Discharge Plan Disposition Patient Disposition: Home Discharge Details Clinical Impression: Acute effusion of left ear Primary Care Provider: Addy Pham ED Provider: Sammy Finley Home Meds and New Rx's Prescriptions: New azithromycin [Zithromax Z-Pito] 250 mg tablet See Rx Instructions .ROUTE .COMPLEX Qty: 6 0RF Rx Instructions: For 250 mg dose pack: take 500 mg today (day 1), then 250 mg for 4 days (days 2-5) Continued acetaminophen 500 mg Tablet 500 mg PO Q6H PRN ibuprofen 600 mg tablet 600 mg PO QID PRN (Reason: pain) Qty: 30 0RF Discharge Instructions Instructions: Ear Infection (ED) Additional Instructions: You are seen in the emergency department for your ear pain. Your exam showed that you had some fluid behind your eardrum which is most likely related to a virus. As we discussed please take pain medications this evening. If you have persistent pain tomorrow please begin taking the antibiotic that has been prescribed to your pharmacy. Please return to the emergency department for worsening pain or any swelling of your ear or difficulty swallowing. For your pain please take medications as follows: 1. Take acetaminophen (Tylenol), 1,000 mg (two 500 mg tabs) every 6 hours [2. Take ibuprofen (Advil), 400 mg every 6 hours.] Discharge Data Discharge Date/Time-TO BE ENTERED AT DEPARTURE: 01/14/24 19:19 HPI General Date/Time Provider Initiated Documentation: 01/14/24 19:08 . HPI Narrative: MDM This is an overall very well-appearing normothermic and not tachycardic 38-year-old male with left middle ear effusion concerning for the possibility of post viral effusion versus developing acute otitis media for which patient will receive outpatient antibiotics using a lyin-sku-jgk approach. No mastoid tenderness to suggest mastoiditis. Similarly no proptosis. No fevers nor posterior oropharynx erythema to suggest strep pharyngitis. No pain out of proportion to suggest necrotizing soft tissue infection. Patient has not been swimming and is not a diabetic and has no signs of malignant otitis externa. Good range of motion in neck so I am not suspicious for retropharyngeal abscess. Uvula midline so I doubt peritonsillar abscess. Nontoxic-appearing so doubt bacterial tracheitis. Handling secretions so doubt epiglottitis. No trauma to the ear to suggest need for repair. Patient has not yet tried oral analgesia. I provided him with acetaminophen and ibuprofen in the emergency department. Nonetheless given his effusion and his son with similar symptoms I gave him a 7- day course of amoxicillin 500 mg twice daily. I advised that if his symptoms persisted in the morning that he should begin the prescription. If if symptoms improved with oral analgesia he should defer antibiotics. I also advised him that the majority of middle ear effusions were post viral and would not respond to antibiotics but would respond to time. I advised him to return to the emergency department if he developed fevers ear pain or any swelling externally on his ear. He understood his return indications and was discharged with empiric trial of expectant outpatient management. HPI This is a previously healthy 38-year-old male with recent URI symptoms last week now with left ear pain pressure arriving to the emergency department via private vehicle. Patient reports that his son had similar symptoms last week. Patient himself had sore throat cough and congestion with subjective fevers last week. These resolved but today he developed some pain and pressure in his left ear. He has been attempting treatment with DayQuil. He takes no other routine medications. He denies any persistent sore throat. He denies nausea vomiting chest pain or shortness of breath. He is not a diabetic. His son received antibiotics last week and it improved. Exam General: Well-appearing in no acute distress speaking in complete sentences. Head: Normocephalic, atraumatic. Eye: Extraocular eye movements intact. No conjunctival injection. No scleral icterus. Ear, nose, mouth, throat: Normal voice, handling secretions normally. Left dull middle ear effusion. No bulging TM. No erythema to TM. No mastoid tenderness. No proptosis. No posterior oropharynx erythema. Uvula midline. Neck: Trachea midline. Good range of motion in neck. Cardiovascular: Well-perfused distal extremities. Regular rate and rhythm. Respiratory: Nonlabored respiration. Clear lungs bilaterally. Gastrointestinal: Nondistended abdomen. Musculoskeletal: No edema. Moving all 4 extremities spontaneously. Skin: Normal for age and race, grossly normal temperature and turgor. No acute rash. Neurologic: Alert and appropriate, no apparent acute deficits. Psychiatric: Mood and manner are appropriate. Grooming and personal hygiene are appropriate. Related Data Home Medications Medication Instructions Recorded Confirmed ibuprofen 600 mg tablet 600 mg PO QID PRN pain #30 tabs 07/04/18 01/14/24 acetaminophen 500 mg tablet 500 mg PO Q6H PRN 11/04/19 01/14/24 azithromycin 250 mg tablet See Rx Instructions PO .COMPLEX #6 01/14/24 (Zithromax Z-Pito) tabs Previous Rx's Medication Instructions Recorded ibuprofen 600 mg tablet 600 mg PO QID PRN pain #30 tabs 07/04/18 azithromycin 250 mg tablet See Rx Instructions PO .COMPLEX #6 01/14/24 (Zithromax Z-Pito) tabs Allergies Allergy/AdvReac Type Severity Reaction Status Date / Time penicillin V [Penicillin V] Allergy Severe Anaphylaxsi Verified 01/14/24 18:22 s General Stated Complaint: EarProblem [place]: 5 Course Vital Signs Vital signs: Vital Signs Temperature 36.6 C 01/14/24 18:17 Pulse 79 01/14/24 18:17 Respiratory Rate 16 01/14/24 18:17 Blood Pressure 135/83 01/14/24 18:17 Pulse Oximetry 98 01/14/24 18:17 Temperature 36.6 C 01/14/24 18:17 Temperature Source Temporal Artery Scan 01/14/24 18:17 Pulse 79 01/14/24 18:17 Respiratory Rate 16 01/14/24 18:17 Respiratory Effort Normal 01/14/24 18:20 Blood Pressure 135/83 01/14/24 18:17 Pulse Oximetry 98 01/14/24 18:17 Oxygen Delivery Method Room Air 01/14/24 18:17 Oxygen Flow Rate 0 01/14/24 18:17 Pain Level 0 01/14/24 18:17 Medical Decision Making Quality:SDOH Health Related Social Needs: No Data to Display PFSH All Active Problems (Updated 01/14/24 @ 19:09 by Sammy Finley MD) Acute effusion of left ear (Acute) Encounter for laboratory testing for COVID-19 virus (Acute) Scabies exposure (Acute) Medical History (Updated 01/14/24 @ 19:09 by Sammy Finley MD) Dental caries Obesity (BMI 30.0-34.9) Pulsatile tinnitus Palpitations History of migraine Dyspepsia Neck pain Thoracic back pain Shoulder pain, right Back pain, chronic Social History Smoking/Tobacco Use Status: Never Smoking risk assessment performed?: Yes Alcohol Intake: current Alcohol Intake frequency: holidays/special occasions only Drug use: Never Substance use type: does not use Household members: none Seatbelt use: always Do you feel safe at home: Yes Do you feel safe in your relationship?: Yes
[2024-01-14] MEDS: Ibuprofen 600 MG TAB PO (19:18)
[2024-01-14] MEDS: Acetaminophen 500 MG TAB 1000 MG PO (19:18)
== END 2024-01-14 19:19 | disposition home or self-care (01) ==
PROVIDERS: Emergency Provider Emergency Medicine; PCP Internal Medicine
DX: H93.8X2 Other specified disorders of left ear
CPT/HCPCS: 99283

== ENCOUNTER 2024-12-27 18:33 | Emergency (ER) | payer MEDICAID, SELFPAY ==
[2024-12-27 18:40] VITALS: BP 132/89; PULSE 98; RESP 12; TEMP 36.9; O2SAT 96
--- NOTE | 2024-12-27 18:58 | ED.GENADUL_ITS ---
Discharge Plan Disposition Patient Disposition: Home Condition: Stable Discharge Details Clinical Impression: Rash Primary Care Provider: Unknown,Unknown ED Provider: Ky Mercado Home Meds and New Rx's Prescriptions: New prednisone 20 mg tablet See Rx Instructions .ROUTE .COMPLEX Qty: 18 0RF Rx Instructions: Take 60 mg for 3 days, then 40 mg for 3 days, then 20 mg for 3 days. Continued acetaminophen 500 mg Tablet 500 mg PO Q6H PRN ibuprofen 600 mg tablet 600 mg PO QID PRN (Reason: pain) Qty: 30 0RF Discharge Instructions Additional Instructions: You can continue to use calamine lotion. For itching you can also use Benadryl, follow dosing instructions on the packaging. A daily Claritin or Zyrtec can also help. If not improving within a week follow-up with your primary care provider. If you feel more ill or have new symptoms such as severe pain or difficulty breathing return to the emergency department for reevaluation. HPI General Mode of arrival: ambulatory . Date/Time Provider Initiated Documentation: 12/27/24 18:36 . Limitations to Documentation: no limitations . Information obtained by: patient . History of Present Illness 39 year old M presents to the emergency department with the chief complaint of rash, described as moderate, Patient started experiencing this day(s) (2) and it has been constant. No relieving factors improve symptom(s), No exacerbating factors reported . Patient notes no other symptoms.. Related Data Home Medications ?Medication ?Instructions ?Recorded ?Confirmed ibuprofen 600 mg tablet 600 mg PO QID PRN pain #30 tabs 07/04/18 12/27/24 acetaminophen 500 mg tablet 500 mg PO Q6H PRN 11/04/19 01/14/24 prednisone 20 mg tablet See Rx Instructions .Route 12/27/24 .COMPLEX #18 tabs Previous Rx's ?Medication ?Instructions ?Recorded ibuprofen 600 mg tablet 600 mg PO QID PRN pain #30 tabs 07/04/18 prednisone 20 mg tablet See Rx Instructions .Route 12/27/24 .COMPLEX #18 tabs Allergies Allergy/AdvReac Type Severity Reaction Status Date / Time penicillin V (Penicillin V) Allergy Severe Anaphylaxsi Verified 12/27/24 18:43 s General Stated Complaint: RashLesion [place]: 4 Review of Systems All systems reviewed & are unremarkable except as noted in HPI and below Constitutional Constitutional: Denies chills, Denies fever(s) and Denies weakness Cardiovascular Cardiovascular: Denies chest pain and Denies dyspnea Respiratory Respiratory: Denies cough and Denies dyspnea Gastrointestinal Gastrointestinal: Denies abdominal pain, Denies nausea and Denies vomiting Integumentary/Breasts Skin/Breast: Reports rash Neurologic Neurologic: Denies weakness Exam Const General: no acute distress Orientation: alert HENMT Head: normal to inspection Ears: external ears normal General nose exam: external nose normal Mouth: moist mucous membranes Eyes General: appearance normal, both eyes and all related structures Neck Neck: normal visual inspection Resp Effort & Inspection: normal respiratory effort and able to speak in complete sentences Cardio Rate: regular rate Skin Rashes: rashes noted Neuro General: patient alert and patient oriented x3 Extrem General: normal to inspection Psych Mental Status: mental status grossly normal Course Vital Signs Vital signs: Vital Signs Temperature 36.9 C 12/27/24 18:40 Pulse 98 H 12/27/24 18:40 Respiratory Rate 12 12/27/24 18:40 Blood Pressure 132/89 12/27/24 18:40 Pulse Oximetry 96 12/27/24 18:40 Temperature 36.9 C 12/27/24 18:40 Pulse 98 H 12/27/24 18:40 Respiratory Rate 12 12/27/24 18:40 Blood Pressure 132/89 12/27/24 18:40 Blood Pressure Position Sitting 12/27/24 18:40 Pulse Oximetry 96 12/27/24 18:40 Oxygen Delivery Method Room Air 12/27/24 18:40 Oxygen Flow Rate 0 12/27/24 18:40 Medical Decision Making 3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 He states that he thinks he was exposed to poison oak. He denies any fevers, chills, difficulty breathing or abdominal symptoms. He is well-a ppearing speaking full sentences. He has been using calamine lotion on his arms with the rashes with some relief. He has multiple patches of vesicles and erythema on both arms. They do oseas. There is no tenderness. It does appear to be consistent with an exposure to likely poison oak. I will place him on prednisone and he will follow-up with his PCP if not improving. Return precautions given Differential Diagnosis Differential Diagnosis: Please note, ischemic Quality:SDOH Health Related Social Needs: No Data to Display PFSH All Active Problems (Updated 12/27/24 @ 19:01 by Ky Mercado MD) Rash (Acute) Encounter for laboratory testing for COVID-19 virus (Acute) Scabies exposure (Acute) Medical History (Updated 12/27/24 @ 19:01 by Ky Mercado MD) Dental caries Obesity (BMI 30.0-34.9) Pulsatile tinnitus Palpitations History of migraine Dyspepsia Neck pain Thoracic back pain Shoulder pain, right Back pain, chronic Social History Smoking/Tobacco Use Status: Never Smoking risk assessment performed?: Yes Alcohol Intake: current Alcohol Intake frequency: holidays/special occasions only Drug use: Never Substance use type: does not use Household members: none Seatbelt use: always Do you feel safe at home: Yes Do you feel safe in your relationship?: Yes
[2024-12-27] MEDS: predniSONE 20 MG TAB 60 MG PO (19:07)
== END 2024-12-27 19:12 | disposition home or self-care (01) ==
PROVIDERS: Emergency Provider Emergency Medicine
DX: R21 Rash and other nonspecific skin eruption (principal)
CPT/HCPCS: 99283 ×2; J7512

== ENCOUNTER 2025-06-23 17:02 | Emergency (ER) | payer MEDICAID, SELFPAY ==
[2025-06-23 17:10] VITALS: BP 135/82; PULSE 78; RESP 20; TEMP 36.7; O2SAT 96
--- NOTE | 2025-06-23 18:18 | ED.GENADUL_ITS ---
Discharge Plan Disposition Patient Disposition: Home Condition: Stable Discharge Details Clinical Impression: Tick bite Primary Care Provider: Unknown,Unknown ED Provider: Ky Mercado Home Meds and New Rx's Prescriptions: New doxycycline hyclate 100 mg tablet 100 mg PO BID Qty: 20 0RF Continued acetaminophen 500 mg Tablet 500 mg PO Q6H PRN ibuprofen 600 mg tablet 600 mg PO QID PRN (Reason: pain) Qty: 30 0RF Discharge Instructions Additional Instructions: You had a tick panel sent which does not come back for a few days, if it is positive for anything you will receive a phone call. Take the antibiotic as prescribed. If not improving within a week follow-up with your primary care provider. If you feel significantly more ill or have new symptoms such as persistent vomiting or difficulty breathing return to the emergency department for reevaluation. HPI General Mode of arrival: ambulatory . Date/Time Provider Initiated Documentation: 06/23/25 17:11 . Limitations to Documentation: no limitations . Information obtained by: patient . History of Present Illness 39 year old M presents to the emergency department with the chief complaint of tick bite, body aches, described as moderate, Patient started experiencing this day(s) (3) and it has been constant. No relieving factors improve symptom(s), No exacerbating factors reported . Patient notes no other symptoms.. Patient did receive the following treatments prior to arrival, none Related Data Home Medications Medication Instructions Recorded Confirmed ibuprofen 600 mg tablet 600 mg PO QID PRN pain #30 t abs 07/04/18 06/23/25 acetaminophen 500 mg tablet 500 mg PO Q6H PRN 11/04/19 06/23/25 doxycycline hyclate 100 mg tablet 100 mg PO BID #20 ta bs 06/23/25 Previous Rx's Medication Instructions Recorded ibuprofen 600 mg tablet 600 mg PO QID PRN pain #30 t abs 07/04/18 doxycycline hyclate 100 mg tablet 100 mg PO BID #20 ta bs 06/23/25 Allergies Allergy/AdvReac Type Severity Reaction Status Date / Time penicillin V (Penicillin V) Allergy Severe Anaphylaxsi Verified 06/23/25 17:13 s General Stated Complaint: InsectBite [place]: 4 Review of Systems All systems reviewed & are unremarkable except as noted in HPI and below Constitutional Constitutional: Denies chills, Denies fever(s) and Denies weakness Cardiovascular Cardiovascular: Denies chest pain and Denies dyspnea Respiratory Respiratory: Denies cough and Denies dyspnea Gastrointestinal Gastrointestinal: Denies abdominal pain, Denies nausea and Denies vomiting Neurologic Neurologic: Denies weakness Exam Const General: no acute distress Orientation: alert HENMT Head: normal to inspection Ears: external ears normal General nose exam: external nose normal Mouth: moist mucous membranes Eyes General: appearance normal, both eyes and all related structures Neck Neck: normal visual inspection Resp Effort & Inspection: normal respiratory effort and able to speak in complete sentences Cardio Rate: regular rate Skin General skin exam: no erythema Neuro General: patient alert and patient oriented x3 Extrem General: normal to inspection Psych Mental Status: mental status grossly normal Course Vital Signs Vital signs: Vital Signs Temperature 36.7 C 06/23/25 17:10 Pulse 78 06/23/25 17:10 Respiratory Rate 20 06/23/25 17:10 Blood Pressure 135/82 06/23/25 17:10 Pulse Oximetry 96 06/23/25 17:10 Temperature 36.7 C 06/23/25 17:10 Pulse 78 06/23/25 17:10 Respiratory Rate 20 06/23/25 17:10 Blood Pressure 135/82 06/23/25 17:10 Blood Pressure Position Sitting 06/23/25 17:10 Pulse Oximetry 96 06/23/25 17:10 Oxygen Delivery Method Room Air 06/23/25 17:10 Oxygen Flow Rate 0 06/23/25 17:10 Medical Decision Making 39-year-old male who denies any chronic medical problems comes in with complaints of feeling body aches after he removed a tick from his lower abdomen that he thinks was on for over a day. He says he removed it 3 days ago and it was engorged. He has not had any fevers. Denies any recent travel. The right lower abdomen where he removed the tick is a 1 cm area of mild erythema. There is no fluctuance or drainage. I suspect he could have a tickborne illness. Will send a tick panel and check a BMP and likely start him on doxycycline. Metabolic panel unremarkable and he is stable. Will initiate doxycycline and he will follow-up with his PCP if not improving and return precautions given. Differential Diagnosis Differential Diagnosis: lyme, anaplasmosis PFSH All Active Problems (Updated 06/23/25 @ 19:14 by Ky Mercado MD) Tick bite (Acute) Encounter for laboratory testing for COVID-19 virus (Acute) Scabies exposure (Acute) Medical History (Updated 06/23/25 @ 19:14 by Ky Mercado MD) Dental caries Obesity (BMI 30.0-34.9) Pulsatile tinnitus Palpitations History of migraine Dyspepsia Neck pain Thoracic back pain Shoulder pain, right Back pain, chronic Social History Smoking/Tobacco Use Status: Never Smoking risk assessment performed?: Yes Alcohol Intake: current Alcohol Intake frequency: holidays/special occasions only Drug use: Never Substance use type: does not use Household members: none Seatbelt use: always Do you feel safe at home: Yes Do you feel safe in your relationship?: Yes
[2025-06-23 18:54] LABS: Anion Gap 8.2 mmol/L (3-11); BUN 12 mg/dL (7-18); CO2 28.8 mmol/L (21.0-32.0); Calcium 9.2 mg/dL (8.5-10.1); Chloride 104 mmol/L (98-107); Glucose 92 mg/dL (74-106); Potassium 3.8 mmol/L (3.5-5.1); Sodium 141 mmol/L (136-145)
[2025-06-23] MEDS: Doxycycline Hyclate 100 MG, 2 CAPS/BTL PO (19:26)
[2025-06-23 19:32] VITALS: BP 134/78; PULSE 72; RESP 16; TEMP 37; O2SAT 97
[2025-06-27 01:05] LABS: B. miyamotoi PCR Negative (Negative); Babesia divergens/MO-1 Negative (Negative); Ehrlichia muris eauclairensis Negative (Negative)
[2025-06-27 09:59] LABS: Lyme Ab w Rflx to Lyme Confirm Negative (Negative)
--- NOTE | 2025-06-27 13:17 | NUR.NOTE ---
Access chart to determine the antibiotic on discharge for Lyme test results. Results given to provider. Nursing Note:
== END 2025-06-23 19:30 | disposition home or self-care (01) ==
PROVIDERS: Emergency Provider Emergency Medicine
DX: S30.861A Insect bite (nonvenomous) of abdominal wall, initial encounter (principal); W57.XXXA Bitten or stung by nonvenomous insect and other nonvenomous arthropods, initial encounter
CPT/HCPCS: 80048; 87798; 99283; 86618